=== PATIENT | male | born 1970 | race African-American/Black ===

== ENCOUNTER 2024-12-11 14:52 | Outpatient (CLI) | payer OTHER | END 2024-12-11 14:53 | disposition home or self-care (01) | LOC: BICRAD 14:52 | PROVIDERS: ATTEND Family Medicine | DX: M25.552 Pain in left hip (principal); M25.551 Pain in right hip; M54.50 Low back pain, unspecified; M16.0 Bilateral primary osteoarthritis of hip; M40.56 Lordosis, unspecified, lumbar region; M47.816 Spondylosis without myelopathy or radiculopathy, lumbar region; M47.817 Spondylosis without myelopathy or radiculopathy, lumbosacral region | CPT/HCPCS: 72110 ==